=== PATIENT | female | born 1955 | race Caucasian/White ===

== ENCOUNTER 2019-08-25 14:01 | Outpatient (CLI) | payer SELFPAY ==
--- NOTE | 2019-08-25 14:22 | XR_ITS ---
WS: [id number] HAND RIGHT TECHNIQUE: 3 views of the right hand CLINICAL INFORMATION: HAND PAIN, RIGHT, LOCALIZED SWELLING COMPARISON: None. FINDINGS: Soft tissue edema. Normal metacarpals. Mild narrowing of the radiocarpal joint. IP joint narrowing. S ubchondral cystic change involving the third middle phalanx. No acute fractures. XR/XR hand RT min 3V* [id number] IMPRESSION: Mild degenerative arthritis. No acute fractures
== END 2019-08-25 14:02 | disposition home or self-care (01) ==
LOC: RADWPI 14:10
PROVIDERS: PCP Nurse Practitioner Family; Visit Provider Nurse Practitioner Family
DX: R22.31 Localized swelling, mass and lump, right upper limb (principal); M19.041 Primary osteoarthritis, right hand
CPT/HCPCS: 73130